=== PATIENT | female | born 1990 | race Caucasian/White ===

== ENCOUNTER 2017-02-08 13:32 | Emergency (ER) | payer OTHER ==
[~2017-02-08] VITALS: Ht 165.1 cm; Wt 45.5 kg
[2017-02-08] MEDS ORDERED: METF500T4 PO (13:35)
[2017-02-08 13:47] LABS: GLUCOSE,POINT OF CARE 349 MG/DL (70-110)
[2017-02-08 15:51] VITALS: BP 112/64
== END 2017-02-08 15:55 | disposition home or self-care (01) ==
LOC: EMS 13:39
DX: H66.91 Otitis media, unspecified, right ear (principal)
CPT/HCPCS: 81025; 82962; 99283

== ENCOUNTER 2017-05-07 17:13 | Emergency (ER) | payer OTHER ==
[~2017-05-07] VITALS: Ht 157.5 cm; Wt 45.5 kg
[~2017-05-07 17:13] MED LIST: METF500T4 PO
[2017-05-07 17:22] LABS: GLUCOSE,POINT OF CARE 236 MG/DL (70-110)
[2017-05-07 21:01] VITALS: BP 142/67
== END 2017-05-07 21:18 | disposition home or self-care (01) ==
LOC: EMS 17:13
DX: H69.81 Other specified disorders of Eustachian tube, right ear (principal); K08.89 Other specified disorders of teeth and supporting structures
CPT/HCPCS: 82962; 99283

== ENCOUNTER 2017-09-13 17:54 | Emergency (ER) | payer OTHER ==
[~2017-09-13] VITALS: Ht 165.1 cm; Wt 44.5 kg
[~2017-09-13 17:54] MED LIST changes: -METF500T4 PO; +METF500T6 PO
[2017-09-13 18:08] LABS: GLUCOSE,POINT OF CARE 134 MG/DL (70-110)
[2017-09-13 18:18] VITALS: BP 130/96
== END 2017-09-13 18:53 | disposition home or self-care (01) ==
LOC: EMS 17:55
DX: H92.01 Otalgia, right ear (principal)
CPT/HCPCS: 99282

== ENCOUNTER 2022-03-22 13:24 | Emergency (ER) | payer OTHER ==
[~2022-03-22] VITALS: Ht 165.1 cm; Wt 41.4 kg
[~2022-03-22 13:24] MED LIST changes: +METF-1211 PO; -METF500T6 PO
[2022-03-22] MEDS ORDERED: GLIP10TA10 PO ×2 (13:27→15:12)
[2022-03-22 14:18] VITALS: BP 130/65
[2022-03-22 14:45] LABS: APPEARANCE,URINE CLEAR (CLEAR); BILIRUBIN,URINE NEGATIVE (NEGATIVE); GLUCOSE, URINE (UA) 70-100 mg/dL (NEGATIVE); KETONES,URINE NEGATIVE (NEGATIVE); LEUKOCYTE ESTERASE ,URINE NEGATIVE (NEGATIVE); NITRATE,URINE NEGATIVE (NEGATIVE); OCCULT BLOOD,URINE NEGATIVE (NEGATIVE); PH,URINE 5.5 (5.0-8.0); PROTEIN,URINE TRACE mg/dL (NEGATIVE); SPECIFIC GRAVITIY, URINE 1.003 (1.003-1.030); UROBILINOGEN,URINE <=1.0 mg/dL (<=1.0)
[2022-03-22 14:47] LABS: BACTERIA,URINE None Seen /HPF (None Seen); RBC,URINE None Seen /HPF (0-2); WBC,URINE None Seen /HPF (0-5)
[2022-03-22] MEDS ORDERED: PHEN-846 PO (15:12)
[2022-03-22 15:20] LABS: BASOPHILS % (AUTO) 0.3 % (0.0-2.0); EOSINOPHILS % (AUTO) 0.6 % (1.0-6.0); HEMATOCRIT 38.2 % (36-46); HEMOGLOBIN 12.3 g/dL (12.0-16.0); LYMPHOCYTES # (AUTO) 1.7 K/uL (1.0-4.8); LYMPHOCYTES % (AUTO) 32.3 % (22.0-44.0); MEAN CORPUSCULAR HEMOGLOBIN 29.3 pg (26.0-34.0); MEAN CORPUSCULAR HGB CONC 32.2 G/dL (31.0-37.0); MEAN CORPUSCULAR VOLUME 91 fL (80-100); MONOCYTES # (AUTO) 0.4 K/uL (0.1-1.0); MONOCYTES % (AUTO) 7.8 % (2.0-9.0); NEUTROPHILS # (AUTO) 3.1 K/uL (1.8-7.7); PLATELET COUNT (AUTO) 104 K/uL (150-450); RED BLOOD CELL COUNT(AUTO) 4.21 MIL/uL (4.00-5.20); RED CELL DISTRIBUTION WIDTH 13.6 % (11.5-14.5)
[2022-03-22 15:30] LABS: ANION GAP 7 mmol/L (8-16); CALCIUM, TOTAL 8.5 mg/dL (8.8-10.5); CARBON DIOXIDE 28 mmol/L (22-29); CHLORIDE 104 mmol/L (98-107); CREATININE 0.49 mg/dL (0.60-1.30); GLOMERULAR FILTR. RATE CALC > 60 mL/min (>60); GLUCOSE,RANDOM 112 mg/dL (70-110); POTASSIUM 3.5 mmol/L (3.5-5.1); SODIUM SERUM 139 mmol/L (136-145); UREA NITROGEN, BLOOD 10 mg/dL (7-18)
[2022-03-22 15:35] LABS: ALANINE AMINOTRANSFERASE 21 U/L (12-78); ALBUMIN 3.6 g/dL (3.4-5.0); ALKALINE PHOSPHATASE 54 U/L (46-116); ASPARTATE AMINOTRANSFERASE 14 U/L (15-37); BILIRUBIN,TOTAL 0.7 mg/dL (0.1-1.0)
== END 2022-03-22 15:25 | disposition home or self-care (01) ==
LOC: EMS 13:27
DX: R35.0 Frequency of micturition (principal); E11.65 Type 2 diabetes mellitus with hyperglycemia
CPT/HCPCS: 80053; 81001; 82948; 85025; 99283